=== PATIENT | female | born 1945 | race Caucasian/White ===

== ENCOUNTER 2016-06-01 15:04 | Emergency (ER) | payer MEDICARE ==
--- NOTE | ~2016-06-01 | CT71 ---
[facility] A Service of [facility] RADIOLOGY TEXT RESULTS PATIENT: YVETTE TSANG LOCATION: [facility] : 49 UNIT #: [id number] AGE: [address]: Violeta Berger MD SEX: F ORDER DR: [id number] [facility] [address] [facility]. [place], [place] [address] [id number] E MR#: [id number] Acc #: [id number] NAME: YVETTE TSANG : 1945 SEX: F STUDY DATE/TIME: 06/01/2016 15:47 UNIT: [facility] ROOM: STUDY DESCRIPTION: CT Head Wo Contrast Attending Physician: Violeta Berger M.D. Ordering Physician: Violeta Berger M.D. Primary Care Physician: Ronal Zarate M.D. MEDICAL IMAGING REPORT This report is preliminary unless electronic signature is present EXAM CT brain without contrast media HISTORY Headache, nausea, dizziness since this morning. TECHNIQUE Axial imaging of the brain was performed without contrast media. Bone and soft tissue windows are reviewed. This CT exam was performed with one or more of the following radiation dose reduction techniques: automatic exposure control, adjustment of mA and/or kV according to patient size, and iterative reconstruction. FINDINGS There is generalized prominence of the ventricles and CSF-containing spaces. No intra or extraaxial mass lesions, fluid collections or mass effect are seen. No focal areas of low attenuation or evidence of acute hemorrhage. There are atherosclerotic calcifications in the carotid siphons. Bone windows are reviewed. Visualized paranasal sinuses as well as the mastoid air cells appear normally aerated. No fractures or bone destruction. CONCLUSION Atrophy, otherwise negative noncontrast CT of the brain. No acute findings. Dictated by... Albert Verdin M.D. THIS IS AN ELECTRONICALLY VERIFIED REPORT Albert Verdin M.D. at 06/05/2016 4:53 PM [facility] A Service [facility] RADIOLOGY TEXT RESULTS PATIENT: YVETTE TSANG LOCATION: [facility] : 49 UNIT #: [id number] AGE: [address]: Violeta Berger MD SEX: F ORDER DR: TD: 06/01/2016 17:26 JOB #: [id number] MEDICAL IMAGING REPORT Page 1 of 1 COPY
[~2016-06-01 15:04] MED LIST: ADDERALL 10 MG10 M1 PO; ALBUTEROL17 GM INH; AMBIEN; ANTIVERT PO; ASPIRIN PO; ASPIRIN81 MG PO; BENZONATATE; BENZONATATE PO; BENZONATATE200 M1 PO; CALAN SR PO; CENTRUM PO; CENTRUM SILVER PO; CHOLINE500 MG PO; CLIMARA1 PATCH.WK; CO Q-10; CONCERTA PO; COREG6.25 M1; COREG6.25 MG PO; COZAAR; CRESTOR PO; CYMBALTA PO; DESYREL50 MG PO; DIOVAN PO; DURAGESIC; DURAGESIC TOP; EVOXAC30 MG PO; HALCION PO; HYDROCODON-ACE1 EAC7 PO; HYOSCYAMINE0.375 M5 PO; IMITREX PO; LEVSIN; LEVSIN PO; LIDOCAINE HC20 MG/M1; LIPITOR PO; LIPITOR20 MG PO; LOPRESSOR PO; LOTREL 5/10 MG1 CAP; LUNESTA PO; LYRICA; LYRICA PO; MECLIZINE HCL12.5 M2 PO; MICARDIS PO; MIDRIN CAPSULE1 CAP PO; MORPHINE IR PO; MS CONTIN PO; NEURONTIN300 MG PO; NEXIUM; NEXIUM PO; NITROGYLCERIN SUBLINGUAL; OMEPRAZOLE40 M1 PO; OPANA ER; PERCOCET10; PERCOCET10 PO; PHENERGAN; PHENERGAN PO; PHENERGAN PR; PLAVIX PO; PRISTIQ; PROMETHAZINE HC25 MG PO; PROMETRIUM; PROTONIX PO; QUETIAPINE FUM200 MG PO; REGLAN PO; SEROQUEL PO; STRATTERA; TEKTURNA; TEMAZEPAM PO; TOPAMAX50 MG PO; ULTRAM; VALSARTAN-HCTZ1 EAC3 PO; VIT B-12 PO; VITAMIN C PO; VIVELLE.0375 MG/2 TOP; VYVANSE PO; WALGREENS PHARMACY; ZANAFLEX PO; ZOLOFT100 MG PO
== END 2016-06-01 19:15 | disposition home or self-care (01) ==
LOC: CED 15:04
DX: G43.909 Migraine, unspecified, not intractable, without status migrainosus (principal); I10 Essential (primary) hypertension; Z86.73 Personal history of transient ischemic attack (TIA), and cerebral infarction without residual deficits; Z90.49 Acquired absence of other specified parts of digestive tract; Z88.8 Allergy status to other drugs, medicaments and biological substances; Z88.5 Allergy status to narcotic agent; Z79.899 Other long term (current) drug therapy
CPT/HCPCS: 70450; 96361; 96365; 96375; 99284; J1200; J1885; J2550